=== PATIENT | female | born 1985 | race American Indian/Alaskan Native ===

== ENCOUNTER 2020-12-24 12:03 | Emergency (ER) | payer MEDICAID ==
--- NOTE | 2020-12-24 12:30 | Emergency Department Report ---
ED Female HPI - General Chief complaint: Abdominal Pain Stated complaint: ABD PAIN/POSSIBLE Time Seen by Provider: 12/24/20 12:28 Source: patient Mode of arrival: Ambulatory Limitations: No Limitations - History of Present Illness Initial comments: lmp 11-03-20 Comes to ER requesting validation of . Denies any pain or discharge. De nies bleeding. But she told nurse she was cramping. Will ro ectoptic given difference in HPI given. Pt ambulatory on admit to ER. -: Sudden, days(s) - Related Data Sexually active: Yes : 6 Para: 4 A: 1 (ectopic) Allergies Allergy/AdvReac Type Severity Reaction Status Date / Time No Known Allergies Allergy Verified 12/24/20 12:17 ED Review of Systems ROS: Stated complaint: ABD PAIN/POSSIBLE Other details as noted in HPI Comment: All other systems reviewed and negative ED Past Medical Hx - Past Medical History Previous Medical History?: No - Surgical History Past Surgical History?: Yes Additional Surgical History: d/c - Family History Family history: no significant - Social History Smoking Status: Current Every Day Smoker Substance Use Type: Marijuana ED Physical Exam - General Limitations: No Limitations General appearance: alert, in no apparent distress - Head Head exam: Present: atraumatic, normocephalic - Eye Eye exam: Present: normal appearance - ENT ENT exam: Present: mucous membranes moist - Neck Neck exam: Present: normal inspection - Respiratory Respiratory exam: Present: normal lung sounds bilaterally. Absent: respiratory distress - Cardiovascular Cardiovascular Exam: Present: regular rate, normal rhythm. Absent: systolic murmur, diastolic murmur, rubs, gallop - GI/Abdominal GI/Abdominal exam: Present: soft, normal bowel sounds - Extremities Exam Extremities exam: Present: normal inspection - Back Exam Back exam: Present: normal inspection - Neurological Exam Neurological exam: Present: alert, oriented X3 - Psychiatric Psychiatric exam: Present: normal affect, normal mood - Skin Skin exam: Present: warm, dry, intact, normal color. Absent: rash ED Course Vital Signs 12/24/20 15:17 Temperature 98.4 F Pulse Rate 60 Respiratory 16 Rate Blood Pressure 116/91 O2 Sat by Pulse 98 Oximetry ED Medical Decision Making - Lab Data Result diagrams: 12/24/20 12:41 - Radiology Data Radiology results: report reviewed, image reviewed no ectopic - Medical Decision Making Lab Results 12/24/20 12/24/20 12/24/20 Range/Units 12:41 12:41 12:41 WBC 4.6 (4.5-11.0) K/mm3 RBC 4.09 (3.65-5.03) M/mm3 Hgb 11.6 (10.1-14.3) gm/dl Hct 34.3 (30.3-42.9) % MCV 84 (79-97) fl MCH 28 (28-32) pg MCHC 34 (30-34) % RDW 13.7 (13.2-15.2) % Plt Count 200 (140-440) K/mm3 HCG, Qual Positive (Negative) Blood Type A POSITIVE Ord Rhogam Gestat Weeks Rh pos WEEKS rh pos quant pending lab noted us noted pt left prior to giving urine- said she could not wait. Discussed and US findings with pt. She is to follow up with obgyn in 48 hours. She verbalizes understanding of dc plan of care. On d/c pt is a mbulatory non ill and non toxic. Taking po and in nad. - Differential Diagnosis ro ectopic/ ab Critical care attestation.: If time is entered above; I have spent that time in minutes in the direct care of this critically ill patient, excluding procedure time. ED Disposition Clinical Impression: , Ovarian cyst Disposition: 01 HOME / SELF CARE / HOMELESS Is pt being admited?: No Does the pt Need Aspirin: No Condition: Stable Instructions: First Trimester of , Abdominal Pain (ED) Additional Instructions: pelvic rest follow up with obgyn in 48 hours for recheck referral below tylenol for pain Referrals: ZOHRA COX MD [Staff Physician] - 3-5 Days Time of Disposition: 14:07
[2020-12-24 13:17] LABS: Hematocrit 34.3 % (30.3-42.9); Hemoglobin 11.6 gm/dl (10.1-14.3); Mean Corpuscular HGB Conc 34 % (30-34); Mean Corpuscular Volume 84 fl (79-97); Platelet Count 200 K/mm3 (140-440); Red Blood Count 4.09 M/mm3 (3.65-5.03); Red Cell Distribution Width 13.7 % (13.2-15.2)
[2020-12-24 15:20] VITALS: BP 116/91
[2020-12-24 15:40] LABS: Bilirubin,Urine NEG (Negative); Blood,Urine NEG (Negative); Color,Urine Yellow (Yellow); Mucus,Urine FEW /HPF; Protein,Urine <15 mg/dL mg/dL (Negative); Urobilinogen,Urine < 2.0 mg/dL (<2.0)
--- NOTE | 2020-12-24 17:44 | Ultrasound Report ---
US OB <= 14 weeks fetus, US OB transvaginal INDICATION / CLINICAL INFORMATION: abd pain in preg. TECHNIQUE: Transabdominal and Transvaginal. COMPARISON: None available. FINDINGS: UTERUS: Appears within normal limits. GESTATIONAL SAC: Well-defined oval shape and intrauterine in location. YOLK SAC: No significant abnormality. EMBRYO/FETUS: - [place]-Rump Length = 1.4 cm - Heart Rate, beats per minute (if present) = 156 beats per minute ADNEXA: Left ovarian corpus luteal cyst. No significant abnormality. FREE FLUID: None. ADDITIONAL FINDINGS: None. IMPRESSION: 1. Single, living intrauterine with estimated sonographic age of 7 weeks 4 days. Signer Name: Richard Dale MD Signed: 12/24/2020 5:40 PM Workstation Name: [id number]
--- NOTE | 2020-12-24 17:44 | Ultrasound Report ---
US OB <= 14 weeks fetus, US OB transvaginal INDICATION / CLINICAL INFORMATION: abd pain in preg. TECHNIQUE: Transabdominal and Transvaginal. COMPARISON: None available. FINDINGS: UTERUS: Appears within normal limits. GESTATIONAL SAC: Well-defined oval shape and intrauterine in location. YOLK SAC: No significant abnormality. EMBRYO/FETUS: - [place]-Rump Length = 1.4 cm - Heart Rate, beats per minute (if present) = 156 beats per minute ADNEXA: Left ovarian corpus luteal cyst. No significant abnormality. FREE FLUID: None. ADDITIONAL FINDINGS: None. IMPRESSION: 1. Single, living intrauterine with estimated sonographic age of 7 weeks 4 days. Signer Name: Richard Dale MD Signed: 12/24/2020 5:40 PM Workstation Name: [id number]
== END 2020-12-24 16:30 | disposition home or self-care (01) ==
LOC: ED 12:03
DX: O34.81 Maternal care for other abnormalities of pelvic organs, first trimester (principal); N83.209 Unspecified ovarian cyst, unspecified side; Z3A.01 Less than 8 weeks gestation of pregnancy; Z98.890 Other specified postprocedural states; F17.290 Nicotine dependence, other tobacco product, uncomplicated
CPT/HCPCS: 36415; 76801; 76817; 81001; 84702; 84703; 85027; 86900; 86901; 99284